=== PATIENT | male | born 1975 | race African-American/Black ===

== ENCOUNTER 2016-12-27 17:47 | Emergency (ER) | payer BC | END 2016-12-27 18:20 | disposition home or self-care (01) | LOC: BURERS 17:47 | DX: T63.461A Toxic effect of venom of wasps, accidental (unintentional), initial encounter (principal); E78.5 Hyperlipidemia, unspecified; I10 Essential (primary) hypertension; Z87.891 Personal history of nicotine dependence | CPT/HCPCS: 99282 ==

== ENCOUNTER 2017-02-26 07:48 | Outpatient (CLI) | payer BC ==
[2017-02-26 08:35] LABS: #Basophils 0.1 thou/uL (0.0-0.2); #Eosinphils 0.4 thou/uL (0.0-0.7); #Lymphocytes 4.4 thou/uL (1.20-3.40); #Monocytes 0.8 thou/uL (0.11-0.59); #Neutrophils 3.6 thou/uL (1.40-6.50); %Basophils 1.5 % (0.0-1.0); %Eosinophils 4.1 % (0.0-10.0); %Lymphocytes 47.3 % (21.0-51.0); %Monocytes 8.2 % (0.0-10.0); Hemoglobin 13.8 g/dL (14.0-18.0); Mean Corpuscular HGB CONC 32.7 g/dL (32.0-36.0); Mean Corpuscular Hemoglobin 29.2 pg (27.0-31.0); Mean Corpuscular Volume 89.5 fl (80.0-94.0); Mean Platelet Volume 8.4 fL (7.4-10.4); Platelet Count 246 thou/uL (130-400); RBC Distribution Width 12.6 % (11.5-14.5); Red Blood Cell (RBC) Count 4.72 mill/uL (4.70-6.10); White Blood Cell (WBC) Count 9.2 thou/uL (4.8-10.8)
[2017-02-26 09:59] LABS: ALT (SGPT) 18 U/L (8-55); AST (SGOT) 17 U/L (5-34); Albumin 3.8 g/dL (3.5-5.0); Alkaline Phosphatase 63 U/L (40-150); Anion Gap 11 mmol/L (10-20); BUN (Urea Nitrogen) 18 mg/dL (8.9-20.6); Bilirubin, Total 1.2 mg/dL (0.2-1.2); Calc. Creatinine Clearance 0 mL/min (70-130); Calcium 8.9 mg/dL (7.8-10.44); Carbon Dioxide 26 mmol/L (22-29); Cardiac Risk 4.4 (Less than 4.5); Chloride 109 mmol/L (98-107); Cholesterol 170 mg/dl (< 200 Desired); Estimated GFR-MDRD 77; Globulin 2.5 g/dL (2.4-3.5); Glucose 101 mg/dL (70-105); HDL Cholesterol 39 mg/dL (>60 Neg Risk); LDL Cholesterol, Calculated 118 mg/dL; Potassium 4.5 mmol/L (3.5-5.1); Protein, Total 6.3 g/dL (6.0-8.3); Sodium 141 mmol/L (136-145); Triglycerides 65 mg/dL (Less than 150)
== END 2017-02-26 07:49 | disposition home or self-care (01) ==
LOC: BURLAB 07:48
PROVIDERS: ATTEND Family Medicine
DX: Z13.6 Encounter for screening for cardiovascular disorders (principal); R53.83 Other fatigue
CPT/HCPCS: 36415; 80053; 80061; 84403; 84443; 85025

== ENCOUNTER 2019-12-16 08:40 | Outpatient (CLI) | payer BC ==
--- NOTE | 2019-12-16 14:37 | CT ---
CT ABDOMEN WITH CONTRAST: 12/16/[address] of the abdomen was done without IV contrast for evaluation of a palpable mass in the epig astric region. Oral contrast was given but no IV because the patient was said to be allergic to iodin e. The scan actually covers from the low chest through the majority of the pelvis. Regarding the area in question, the CT does not define an actual mass in the lower sternal/xyphoid r egion. I see what appears to be one tiny blood vessel extending from near the xyphoid up towards the skin surface, but I do not see any actual mass, obvious lipoma, or other finding of concern in the mi dline. I do not know if this is a possibility, but some patient's xyphoid processes ossify late and a s they do become palpable and may mimic the feeling of a mass. The visible portions of the sternum ap peared normal. The costochondral articulations near this area were symmetrical. The lung bases are cl ear and there are no effusions. The liver, spleen, pancreas, gallbladder, and abdominal aorta showed no acute findings. There is a va vandana lucent area in the right kidney, but a recent ultrasound showed a small cyst here. There are no r enal calcifications. The right adrenal gland appears normal. The very upper most portion of the left adrenal gland was faintly nodular. I cannot exclude a small 1 cm or less nodule here. The odds of thi s being currently significant are probably low. The thickness of the wall of some of the colon was perhaps upper normal, but none of it was thick carley ugh to suggest colitis. The appendix appears normal. No free air or free fluid was seen. A few divert icula are beginning to form in the left colon. IMPRESSION: 1. No acute abdominal findings. 2. No actual mass seen in the lower xyphoid/upper epigastric region. 3. Other findings as listed above. POS: HOME
== END 2019-12-16 08:41 | disposition home or self-care (01) ==
LOC: BURCT 08:40
PROVIDERS: ATTEND Family Medicine
DX: R19.06 Epigastric swelling, mass or lump (principal); N28.1 Cyst of kidney, acquired
CPT/HCPCS: 74160

== ENCOUNTER 2020-10-16 11:37 | Outpatient (CLI) | payer BC | END 2020-10-16 11:38 | disposition home or self-care (01) | LOC: BURRAD 11:37 | PROVIDERS: ATTEND Family Medicine | DX: M54.5 Low back pain (principal) | CPT/HCPCS: 72100 ==

== ENCOUNTER 2021-01-11 20:21 | Emergency (ER) | payer BC ==
[2021-01-11 21:50] LABS: Bilirubin Negative (Negative); Blood, Urine Trace (Negative); Clarity Clear (Clear); Glucose, Urine (Dipstick) Negative (Negative); Ketone, Urine Trace mg/dL (Negative); Leukocyte Negative (Negative); Nitrite Negative (Negative); Protein, Urine (Dipstick) Trace mg/dL (Neg-Trace); Urobilinogen 0.2 mg/dL (Less than 2); pH, Urine 6.5 (5.0-9.0)
[2021-01-11 21:51] LABS: Specific Gravity, Urine 1.034 (1.002-1.036)
[2021-01-11 21:53] LABS: RBC/HPF 0-3 HPF (0-3); Squamous Epithelial None Seen HPF (0-3); WBC/HPF None Seen HPF (0-3)
[2021-01-11] MEDS ORDERED: Tamsulosin HCl 0.4 MG CAP PO SCH (22:00)
== END 2021-01-11 22:28 | disposition home or self-care (01) ==
LOC: BURERS 20:21
DX: R33.9 Retention of urine, unspecified (principal); E78.5 Hyperlipidemia, unspecified; E78.00 Pure hypercholesterolemia, unspecified; I10 Essential (primary) hypertension; Z87.891 Personal history of nicotine dependence
CPT/HCPCS: 81003; 81015; 99283

== ENCOUNTER 2021-03-08 10:38 | Outpatient (CLI) | payer BC | END 2021-03-08 10:39 | disposition home or self-care (01) | LOC: BURRAD 10:38 | PROVIDERS: ATTEND Family Medicine | DX: M25.551 Pain in right hip (principal) ==

== ENCOUNTER 2021-08-16 10:14 | Outpatient (CLI) | payer BC ==
[2021-08-16 11:16] LABS: #Basophils 0.1 thou/uL (0.0-0.2); #Eosinphils 0.6 thou/uL (0.0-0.7); #Lymphocytes 3.9 thou/uL (1.20-3.40); #Monocytes 0.9 thou/uL (0.11-0.59); #Neutrophils 4.1 thou/uL (1.40-6.50); %Basophils 1.2 % (0.0-1.0); %Lymphocytes 40.6 % (21.0-51.0); %Monocytes 9.5 % (0.0-10.0); %Neutrophils 42.8 % (42.0-75.0); Hemoglobin 13.3 g/dL (14.0-18.0); Mean Corpuscular Hemoglobin 30.5 pg (27.0-31.0); Mean Corpuscular Volume 89.5 fL (78.0-98.0); Platelet Count 367 thou/uL (130-400); RBC Distribution Width 12.9 % (11.5-14.5); Red Blood Cell (RBC) Count 4.35 mill/uL (4.70-6.10); White Blood Cell (WBC) Count 9.6 thou/uL (4.8-10.8)
[2021-08-16 12:23] LABS: ALT (SGPT) 26 U/L (8-55); AST (SGOT) 18 U/L (5-34); Albumin 4.1 g/dL (3.5-5.0); Alkaline Phosphatase 79 U/L (40-110); Anion Gap 16 mmol/L (10-20); BUN (Urea Nitrogen) 13 mg/dL (8.9-20.6); Bilirubin, Total 0.6 mg/dL (0.2-1.2); Calc. Creatinine Clearance 0 mL/min (70-130); Calcium 9.2 mg/dL (7.8-10.44); Carbon Dioxide 26 mmol/L (22-29); Chloride 105 mmol/L (98-107); Cholesterol 192 mg/dl (< 200 Desired); Globulin 2.8 g/dL (2.4-3.5); Glucose 97 mg/dL (70-105); HDL Cholesterol 32 mg/dL (>60 Neg Risk); LDL Cholesterol, Calculated 146 mg/dL; Potassium 4.8 mmol/L (3.5-5.1); Protein, Total 6.9 g/dL (6.0-8.3); Sodium 142 mmol/L (136-145); Triglycerides 70 mg/dL (Less than 150)
[2021-08-16 23:47] LABS: SARS-CoV-2 PCR by NAA Not Detected (NotDetected)
== END 2021-08-16 10:15 | disposition home or self-care (01) ==
LOC: BURRAD 10:14
PROVIDERS: ATTEND Family Medicine
DX: Z01.818 Encounter for other preprocedural examination (principal); E11.9 Type 2 diabetes mellitus without complications; E78.00 Pure hypercholesterolemia, unspecified; R79.89 Other specified abnormal findings of blood chemistry
CPT/HCPCS: 36415; 71046; 80053; 80061; 84403; 84443; 85025; 93005; 93010; U0003; U0005